=== PATIENT | male | born 1970 | race Caucasian/White ===

== ENCOUNTER 2020-03-26 18:21 | Emergency (ER) | payer BC ==
[2020-03-26 18:29] VITALS: RESP 18; TEMP 98.6
[2020-03-26] MEDS ORDERED: methylPREDNISolone SOD SUCCI 125 MG/2 ML VIAL IV STA (18:36)
[2020-03-26 18:56] VITALS: BP 133/89; PULSE 77
--- NOTE | 2020-03-26 19:30 | ED ---
General Adult HPI - General Chief complaint: Allergic Reaction Stated complaint: Allergic Reaction Time Seen by Provider: 03/26/20 18:29 Source: patient, EMS, RN notes reviewed, old records reviewed Mode of arrival: EMS Limitations: no limitations - History of Present Illness Initial comments: 49-year-old male patient presents to ED for evaluation of yellow jacket sting patient reports that he was cutting wood with a saw when he upset some yellow jackets and was stung twice. Once on the back to head and left elbow. Patient reports that about 20 years ago he did have severe reaction from the stings and had angioedema. Denies any difficulty breathing denies any rash states he feels fine he just wanted to be safely. Did give Benadryl by EMS. Does have 2 EpiPens Systemic: Pt denies fatigue, fever/chills, rash. Pt denies weakness, night sweats, weight loss. Neuro: Pt denies headache, visual disturbances, syncope or pre-syncope. HEENT: Pt denies ocular discharge or irritation, otalgia, rhinorrhea, pharyngitis or notable lymphadenopathy. Cardiopulmonary: Pt denies chest pain, SOB, heart palpitations, dyspnea on exertion. Abdominal/GI: Pt denies abdominal pain, n/v/d. : Pt denies dysuria, burning w/ urination, frequency/urgency. Denies new onset urinary or bowel incontinence. MSK: Pt denies myalgia, loss of strength or function in extremities. Neuro: Pt denies new onset weakness, paresthesias. - Related Data Allergies Allergy/AdvReac Type Severity Reaction Status Date / Time bee venom protein (honey bee) Allergy Anaphylaxis Verified 03/26/20 18:51 Review of Systems ROS Statement: Those systems with pertinent positive or pertinent negative responses have been documented in the HPI. ROS Other: All systems not noted in ROS Statement are negative. Past Medical History Additional Past Medical History / Comment(s): gout History of Any Multi-Drug Resistant Organisms: None Reported Past Surgical History: No Surgical Hx Reported Past Psychological History: No Psychological Hx Reported Smoking Status: Never smoker Past Alcohol Use History: Occasional Past Drug Use History: None Reported General Exam - General Exam Comments Initial Comments: Constitutional: NAD, AOX3, Pt has pleasant affect. HEENT: NC/AT, trachea midline, neck supple, no lymphadenopathy. Posterior pharynx non erythematous, without exudates. No posterior pharyngeal edema. External ears appear normal, without discharge. Mucous membranes moist. Eyes PERRLA, EOM intact. There is no scleral icterus. No pallor noted. Cardiopulmonary: RRR, no murmurs, rubs or gallops, no JVD noted. Lungs CTAB in anterior and posterior roque. No peripheral edema. Abdominal exam: Abdomen soft and non-distended. Abdomen non-tender to palpation in all 4 quadrants. Bowel sounds active in LLQ. No hepatosplenomegaly. No ecchymosis Neuro: CN II-XII grossly intact. No nuchal rigidity. No raccon eyes, no rosas sign, no hemotympanum. No cervical spinal tenderness. MSK: No stinger noted on scalp or on left elbow. No significant erythema areas of sting. No rash. Full active ROM in upper and lower extremities, 5/5 stregnth. Limitations: no limitations Course Vital Signs 03/26/20 03/26/20 03/26/20 18:23 18:31 18:55 Temperature 98.6 F Pulse Rate 95 77 Respiratory 18 18 18 Rate Blood Pressure 152/88 133/89 O2 Sat by Pulse 98 96 Oximetry Medical Decision Making - Medical Decision Making 49-year-old male patient presents to ED for evaluation of wasp sting. Patient is asymptomatic. No sign of ALLERGIC reaction. Was observed in emergency department for over one hour and the sting was over 2 hours ago. Was ministered a dose of steroids has EpiPen at home. We'll be discharging return to ER if any worsening symptoms. Case discussed with Dr. Mchugh. Disposition Clinical Impression: Wasp sting Disposition: HOME SELF-CARE Condition: Stable Instructions (If sedation given, give patient instructions): Insect Bite or Sting (ED) Additional Instructions: Follow-up with primary care provider tomorrow. Return here if any worsening symptoms. If any symptoms consistent with anaphylaxis arise then use EpiPen. This includes swelling of the face, difficulty breathing, sensation of throat closing. Is patient prescribed a controlled substance at d/c from ED?: No Referrals: Nonstaff,Physician [Primary Care Provider] - 1-2 days
== END 2020-03-26 19:50 | disposition home or self-care (01) ==
LOC: EC 18:21
DX: T63.461A Toxic effect of venom of wasps, accidental (unintentional), initial encounter (principal); Z91.030 Bee allergy status
CPT/HCPCS: 99284; 96374; J2930